=== PATIENT | female | born 1935 | race Caucasian/White ===

== ENCOUNTER → 2018-09-24 | Outpatient (CLI) | payer OTHER ==
[~2018-09-24] VITALS: Ht 170.2 cm; Wt 93.9 kg
[~2018-09-24] MED LIST: ASA5UEC PO; CALCIUM 500 +1 EAC5 PO; CEFUROXIME500 MG PO; HAIR, SKIN & N1 EAC2 PO; LASIX 40 MG TAB40 M2 PO; LIPITOR10 MG PO; LISINOPRIL5 MG PO; MULTIVITAMINS1 EAC7 PO; NASACORT10.8 ML NASAL; NEXIUM40 MG PO; NORCO 5-325 TA1 EACH PO; OXYBUTYNIN 5 MG5 M2 PO; SPIRONOLACTONE25 M1 PO; SYNTHROID125 MC1 PO
--- NOTE | ~2018-09-24 | P ---
[facility] [place] [address] PROCEDURE REPORT Name: MONCHO LYN Room #: REG Candace Ramirez.#: [id number] Admission: 09/24/18 Attend Phys: Chi Palafox MD Discharge: Date of : 37 Report #: [id number] THIS REPORT FOR: //name// CC: Santino Gonzalez DATE OF SERVICE: 09/24/2018 BRIEF HISTORY: The patient is an 83-year-old woman with history of multiple colon adenomas about 3 years ago. She had 5 adenomas removed at that time. She presents for high risk screening colonoscopy due to her history of adenomas. PREOPERATIVE DIAGNOSIS: High risk screening colonoscopy. POSTOPERATIVE DIAGNOSES: 1. Multiple diminutive colon polyps. 2. Sigmoid diverticulosis coli. MEDICATIONS: Deep sedation with propofol per anesthesia. SPECIMENS: 1. Cecal polyp. 2. Mid ascending colon polyp. 3. Polyp at 40 cm. ESTIMATED BLOOD LOSS: 3 mL. PROCEDURE: Colonoscopy to cecum and terminal ileum with biopsy. FINDINGS: Prior to propofol sedation, procedure of colonoscopy was discussed with the patient as well as potential risks and its complications. She indicates she understands and desires to proceed. DESCRIPTION OF PROCEDURE: With the patient in left lateral decubitus position, digital examination was completed, which revealed no abnormalities. Subsequently, the Olympus video colonoscope was introduced into the rectum, advanced under direct vision to the cecum. Done with minimal difficulty. The cecum was identified by the ileocecal valve and the appendiceal orifice. I was able to visualize the distal segment of the terminal ileum, which was inspected and noted to be unremarkable. At that point, the scope was slowly withdrawn and careful circumferential views were obtained including retroflexing the scope in the ascending colon. Upon slow withdrawal of the scope, the prep was good. The mucosa was within normal limits, normal vascular pattern, normal light reflex. As we withdrew the scope, a diminutive polyp was seen in the cecum, removed with biopsy forceps. Another diminutive polyp was seen and removed with biopsy [facility] [address] [place] [address] PROCEDURE REPORT Name: RIKIMONCHO Room #: REG [facility]..#: [id number] Admission: 09/24/18 Attend Phys: Chi Palafox MD Discharge: Date of : 37 Report #: [id number] forceps from the mid ascending colon. As we withdrew the scope, no additional polyps were seen. She was noted to have a few scattered diverticula in the sigmoid colon without endoscopic evidence of diverticulitis. The scope was withdrawn in the rectum. Upon retroflexion, no abnormalities were seen. Scope was withdrawn. The patient tolerated the procedure well. CONDITION OF THE PATIENT UPON DISCHARGE: Following procedure, the patient was drowsy, arousable, conversant and will be discharged home when fully ambulatory. INSTRUCTIONS TO THE PATIENT AND FAMILY AT THE TIME OF DISCHARGE: We will follow up on the path of the polyps; however, in view of her multiple comorbidities, she is not likely to gain much benefit from continued routine surveillance colonoscopy. If she should develop a specific problem requiring further intervention, colonoscopy could be considered at that point in time. She will return to the care of Dr. Santino Whyte and return to see me as needed. Withdrawal time from the cecum was 12 minutes 27 seconds. Previous colonoscopy was more than 3 years ago. By: 1013 Chi Palafox MD /nt
--- NOTE | 2018-09-27 16:06 | PATH ---
[facility] [address] [place] [address] PATHOLOGY RPT PROCEDURE Name: MONCHO LYN Room #: REG KILOCandace Ramirez.#: [id number] Admission: 09/24/18 Date of : 37 Discharge: Report #: [id number] Path Case #: [id number] [facility] Accession Number: [id number] . 01 Material submitted: . PART A: BX CECAL POLYP PART B: BX MID ASCENDING COLON POLYP PART C: BX POLYP AT 40CM . 01 Clinical history: . History of polyps Colon polyps, diverticulosis . 02 Diagnosis: A. Polyp, cecal polyp, endoscopic biopsy: - Tubular adenoma. - Negative for high-grade dysplasia. . B. Polyp, mid ascending colon polyp, endoscopic biopsy: - Tubular adenoma. - Negative for high-grade dysplasia. . C. Polyp, at 40 cm, endoscopic biopsy: - Tubular adenoma. - Negative for high-grade dysplasia. . (IUV:hiren; 09/27/2018) MBR/09/27/2018 . 02 Electronically signed: . Sabrina Hollins MD, Pathologist NPI- [id number] . 01 Gross description: . A. The specimen is received in formalin, labeled "Jaylyn Lynred, BX cecal polyp" and consists of a fragment of curry tissue measuring 0.3 x 0.2 x 0.1 cm which is entirely submitted in A1. . B. The specimen is received in formalin, labeled "Tomas, Moncho, BX mid ascending colon polyp" and consists of a fragment of curry tissue measuring 0.5 x 0.2 x 0.1 cm which is entirely submitted in B1. . C. The specimen is received in formalin, labeled "Jaylyn Lynred, BX polyp at 40 cm" and consists of a fragment of curry-brown tissue measuring 0.4 x 0.3 x 0.2 cm which is entirely submitted in C1. (SDY; 09/24/2018) [address] [address] PATHOLOGY RPT PROCEDURE Name: MONCHO LYN Room #: REG Candace Ontiveros..#: [id number] Admission: 09/24/18 Date of : 37 Discharge: Report #: [id number] Path Case #: [id number] . 02 Pathologist provided ICD-10: D12.0, D12.2, D12.6 . 02 CPT . 023838, [id number], [id number] Specimen Comment: A courtesy copy of this report has been sent to Specimen Comment: [phone], . Specimen Comment: Report sent to / DR MCDOWELL Performed at: [address], [place] [id number] MD Mario Rodriguez MD Phone: [phone] Performed at: [address] [id number] MD Sabrina Hollins MD Phone: [phone]
== END | disposition home or self-care (01) ==
LOC: GI 07:05
DX: Z12.11 Encounter for screening for malignant neoplasm of colon (principal); Z86.010 Personal history of colon polyps; D12.0 Benign neoplasm of cecum; D12.2 Benign neoplasm of ascending colon; D12.5 Benign neoplasm of sigmoid colon; K57.30 Diverticulosis of large intestine without perforation or abscess without bleeding; I10 Essential (primary) hypertension; E78.5 Hyperlipidemia, unspecified; E11.9 Type 2 diabetes mellitus without complications; E03.9 Hypothyroidism, unspecified; K21.9 Gastro-esophageal reflux disease without esophagitis; Z90.710 Acquired absence of both cervix and uterus; Z96.643 Presence of artificial hip joint, bilateral; Z96.653 Presence of artificial knee joint, bilateral; Z98.41 Cataract extraction status, right eye; Z98.42 Cataract extraction status, left eye; Z98.890 Other specified postprocedural states; Z79.899 Other long term (current) drug therapy; Z87.442 Personal history of urinary calculi; Z88.8 Allergy status to other drugs, medicaments and biological substances; Z79.82 Long term (current) use of aspirin
CPT/HCPCS: 62110; 62900

== ENCOUNTER → 2020-12-28 | Outpatient (CLI) | payer OTHER | LOC: ULTRA 10:28 | PROVIDERS: ATTEND Family Medicine | DX: E03.9 Hypothyroidism, unspecified (principal); E05.90 Thyrotoxicosis, unspecified without thyrotoxic crisis or storm ==